=== PATIENT | female | born 1950 | race Two or more races ===

== ENCOUNTER 2019-05-30 14:23 | Outpatient (CLI) | payer OTHER ==
[~2019-05-30 14:23] MED LIST: AMLODIPINE BES2.5 MG; ASPIRIN1 GM; COZAAR50 MG; GLIPIZIDE2.5 MG/BO1; KOMBIGLYZE XR1 EAC2; SYNTHROID50 MCG
== END 2019-05-30 14:24 | disposition home or self-care (01) ==
LOC: MAMO-SONO 14:23
DX: Z12.31 Encounter for screening mammogram for malignant neoplasm of breast (principal); Z87.898 Personal history of other specified conditions; N63.11 Unspecified lump in the right breast, upper outer quadrant

== ENCOUNTER 2019-05-30 15:00 | Outpatient (CLI) | payer OTHER | END 2019-05-30 15:08 | disposition home or self-care (01) | LOC: NUCLEAR 15:00 | DX: M81.0 Age-related osteoporosis without current pathological fracture (principal) ==